=== PATIENT | male | born 1995 | race Caucasian/White ===

== ENCOUNTER 2019-02-04 15:28 | Outpatient (CLI) | payer BC, OTHER ==
--- NOTE | 2019-02-05 06:38 | XRAY Report ---
Reason: M25.511 Procedure Date: 02/04/2019 Accession Number: [id number] / [id number] Procedure: XR - Shoulder 3 View RT CPT Code: FULL RESULT: EXAM: RIGHT SHOULDER RADIOGRAPHY. EXAM DATE: 02/04/2019 03:39 PM. CLINICAL HISTORY: M25.511. COMPARISON: None. TECHNIQUE: 4 views. FINDINGS: Bones: Comminuted distal clavicle fracture with up to 1 cm fracture margin displacement. There is no articular margin involvement. Joints: The glenohumeral and acromioclavicular joints are normal. Soft tissues: The visualized hemithorax is unremarkable. No soft tissue swelling. IMPRESSION: Comminuted, moderately displaced distal clavicle fracture. [facility]
== END 2019-02-04 15:29 | disposition home or self-care (01) ==
LOC: DI 15:28
PROVIDERS: ATTEND Specialist
DX: S42.031A Displaced fracture of lateral end of right clavicle, initial encounter for closed fracture (principal)